=== PATIENT | male | born 1965 | race Caucasian/White ===

== ENCOUNTER 2016-08-25 10:36 | Day surgery (SDC) | payer OTHER ==
[2016-08-25] VITALS (15 sets, daily range): BP systolic 93–111; BP diastolic 58–80; PULSE 76–96; RESP 10–20; Ht 170.2 cm; Wt 81.8 kg
[~2016-08-25] VITALS: Ht 170.2 cm; Wt 81.8 kg
[~2016-08-25 10:36] MED LIST: CEFAZOLIN 2 GM/50 ML (PMX) 50 ML IVPB ONE
--- NOTE | 2016-08-25 11:27 | RADRPT ---
PROCEDURE: XR Chest AP portable CLINICAL INDICATION: Preop TECHNIQUE: An AP portable radiograph of the chest was submitted. COMPARISON: None. FINDINGS: Support Hardware: None Cardiovascular: The cardiovascular silhouette appears unremarkable. Lung Kumar: The lung kumar appear clear with no nodule, alveolar infiltrate, for a interstitial pr ominence evident. Pleural Spaces: No pneumothorax or pleural effusion is identified. Osseous Structures: The osseous structures appear intact. Soft Tissues: The soft tissues appear unremarkable. IMPRESSION: Unremarkable portable chest. Physician Annette Date Time Electronically viewed and signed by Liam Auguste Physician on 08/25/2016 11:27 /
[2016-08-25] MEDS ORDERED: FENTAnyl 50 MCG/ML VIAL ONE (12:26)
[2016-08-25] MEDS ORDERED: PROPOFOL 20 ML ONE ×2 (12:26→13:16)
[2016-08-25] MEDS ORDERED: ROPIVACAINE 0.5 % 30 ML VIAL ONE (12:26)
[2016-08-25] MEDS ORDERED: MIDAZOLAM 1 MG/ML 2 ML INJ ONE (12:26)
[2016-08-25] MEDS ORDERED: LACTATED RINGER'S 1,000 ML IV* SCH (12:30)
[2016-08-25] MEDS ORDERED: BUPIVACAINE 0.25% (MPF) 30 ML INJ ONE (13:11)
[2016-08-25] MEDS ORDERED: DEXAMETHASONE 4 MG/ML 1 ML INJ ONE (13:16)
[2016-08-25] MEDS ORDERED: KETOROLAC 30 MG INJ ONE (13:16)
[2016-08-25] MEDS ORDERED: CEFAZOLIN 1 GM INJ ONE (13:16)
[2016-08-25] MEDS ORDERED: ONDANSETRON 4 MG INJ ONE (13:16)
[2016-08-25] MEDS ORDERED: METOCLOPRAMIDE 10 MG INJ ONE (13:16)
[2016-08-25] MEDS ORDERED: BUPIVACAINE 0.5% (SDV) 30 ML INJ ONE (13:28)
[2016-08-25] MEDS ORDERED: DIPHENHYDRAMINE 50 MG INJ IV PRN (13:30)
[2016-08-25] MEDS ORDERED: MEPERIDINE 25 MG INJ IV PRN (13:30)
[2016-08-25] MEDS ORDERED: HYDROmorphONE (0.2 MG/ML) 10ML SYG IV PRN ×3 (13:30)
[2016-08-25] MEDS ORDERED: ONDANSETRON 4 MG INJ IV PRN (13:30)
[2016-08-25] MEDS ORDERED: FENTAnyl 50 MCG/ML VIAL IV PRN ×3 (13:30)
[2016-08-25] MEDS ORDERED: morphine (1 MG/ML) 10ML SYRINGE IV PRN ×3 (13:30)
[2016-08-25] MEDS ORDERED: ACETAMINOPHEN 1000MG/100ML IV 100 ML ONE (13:50)
--- NOTE | 2016-08-25 16:20 | RADRPT ---
PROCEDURE: Intraoperative imaging of the right fifth finger with fluoroscopy. CLINICAL INDICATION: Right fifth finger pain. Fracture. Intraoperative. TECHNIQUE: 28 images of the right fifth finger were obtained in the operating room with an image i ntensifier. No radiologist was in attendance. 49 seconds of fluoroscopy time was used. COMPARISON: No prior study is available for comparison. FINDINGS: Images demonstrate open reduction and internal fixation of the comminuted intra-articular fracture o f the base of the fifth proximal phalanx. IMPRESSION: 1. Intraoperative imaging of the right fifth finger. RPTAT: QQ .Mono Rodriguez MD, Date Time Electronically viewed and signed by .Mono Rodrigeuz MD, on 08/25/2016 16:20 .R/
--- NOTE | 2016-08-25 17:48 | OPR ---
DATE OF OPERATION: 08/25/2016 PREOPERATIVE DIAGNOSIS: Right small finger proximal phalanx fracture, intra-articular at the metaca rpophalangeal joint. POSTOPERATIVE DIAGNOSIS: Right small finger proximal phalanx fracture, intra-articular at the metac arpophalangeal joint. OPERATION PERFORMED: Open reduction internal fixation of intra-articular right small finger proxima l phalanx fracture at the metacarpophalangeal joint. SURGEON: SALONI ZARATE MD. ANESTHESIA: Peripheral nerve block with MAC. OPERATIVE FINDINGS: Early callus formation and a displaced fracture of the proximal phalanx with th e distal fragment in 40 degrees of extension. Intra-articular extension of the fracture fragments. INDICATIONS FOR PROCEDURE: This is a 51-year-old male who injured his right small finger. He was s een in clinic 2 weeks after the injury and we discussed the options. He elected to proceed with ope rative intervention understanding the risks and benefits. We placed a stat authorization and were a ble to get him into surgery one week later. DESCRIPTION OF PROCEDURE: Patient was seen in the preoperative area and again gave him informed con sent, understands the risks and benefits. DESCRIPTION OF THE PROCEDURE: Patient was seen in the preoperative area and all further questions w ere answered. He elected to proceed with surgery understanding the risks, benefits. He was taken t o the operative suite and placed in supine position. The anesthesia team performed a peripheral ner ve block at my request for anesthesia as well as postoperative pain relief. Sedation was administer ed. A tourniquet placed in the right upper extremity. Two grams of Ancef was administered and righ t upper extremity was prepped with ChloraPrep stick and draped in the usual sterile fashion. Esmarc h bandage was used to exsanguinate the extremity and tourniquet inflated to 250 mmHg. A closed red uction was attempted, but there was too much callus formation at this time and closed reduction was not possible. A decision was made to do an open reduction and a mid axial incision was made over th e base of the proximal phalanx with sharp dissection carried down through skin and subcutaneous tiss ue on the ulnar aspect of the digit. A scissor dissection identified the extensor apparatus and inc ision was made on the ulnar aspect of the extensor apparatus. A fracture site was identified and a callus was cleaned out gently with a Pickering elevator and a small rongeur. The fracture was already i n the early stages of healing and reduction was difficult. However, I was able to get the fracture in a more anatomic position. A 0.045 K-wire was driven from the ulnar aspect of the digit, antegrad e through the fracture site and secured into the distal fragment. An additional 0.045 K-wire was us ed on the radial aspect of the digit and the fracture fragment was found to be secure. The wound wa s copiously irrigated and pins were cut and pin caps placed. X-ray imaging confirmed interval reduc tion and appropriate replacement. Skin was closed with interrupted 4-[address] nylon [address] was place d followed by sterile gauze, Webril, and a short arm ulnar gutter splint. Tourniquet was deflated a fter 38 minutes and patient was awakened from anesthesia. He was taken to the postoperative suite i n stable condition and tolerated the procedure well without complication. SPECIMENS: None. ESTIMATED BLOOD LOSS: 5 mL. Sponge, instrument and needle counts correct. Tourniquet time: 38 minutes. Fluoroscopic images 28. Dictated By: SALONI RODRIGUEZ/KEV Conf#: [id number] DID#: [id number]
== END 2016-08-25 15:55 | disposition home or self-care (01) ==
LOC: SDS 10:36
PROVIDERS: ATTEND Orthopaedic Surgery Hand Surgery
DX: S62.616D Displaced fracture of proximal phalanx of right little finger, subsequent encounter for fracture with routine healing (principal); X58.XXXD Exposure to other specified factors, subsequent encounter
CPT/HCPCS: 26746; 71010; 73140; C1713; J0131; J0690; J1100; J1885; J2250; J2405; J2765; J2795; J3010; Z7512; Z7610

== ENCOUNTER 2018-01-11 08:25 | Inpatient (IN) | END 2018-01-16 19:24 | disposition home or self-care (01) | DRG 552 ==

== ENCOUNTER 2018-01-30 12:13 | Emergency (ER) | END 2018-01-30 13:08 | disposition home or self-care (01) ==

== ENCOUNTER 2018-11-24 23:53 | Emergency (ER) | payer OTHER ==
[~2018-11-24] VITALS: Ht 170.2 cm; Wt 87.6 kg
[~2018-11-24 23:53] MED LIST changes: +ACET325T40 PO; +BACL10TA PO; -CEFAZOLIN 2 GM/50 ML (PMX) 50 ML IVPB ONE; +GABA300C PO; +GABA300C16 PO; +HYDR-3605 PO; +NAPR-985 PO; +NAPR500T8 PO; +TRAM50TA2 PO
[2018-11-25 00:15] VITALS: Ht 170.2 cm; Wt 87.6 kg
[2018-11-25] MEDS: morphine 4 MG/ML VIAL IV STA ×2 (03:57→04:07)
[2018-11-25] MEDS: ONDANSETRON 4 MG INJ IV STA ×2 (03:57→04:07)
[2018-11-25] MEDS ORDERED: morphine 4 MG/ML VIAL IM ONE (04:00)
[2018-11-25] MEDS ORDERED: ONDANSETRON 4 MG INJ IM ONE (04:00)
[2018-11-25] MEDS ORDERED: morphine 4 MG/ML VIAL IM STA (06:07)
[2018-11-25] MEDS ORDERED: ONDANSETRON 4 MG INJ IM STA (06:07)
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
[2018-11-25] MEDS ORDERED: IBUP-1542 PO (06:45)
[2018-11-25] MEDS ORDERED: NALO4SPR NS (06:45)
[2018-11-25] MEDS ORDERED: OXYC5CAP17 PO (06:45)
[2018-11-25] MEDS ORDERED: BACITRACIN 0.9 GM OINT TOP ONE (07:00)
[2018-11-25] MEDS ORDERED: DIPHTH/TET/ACEL PERTUSS (ADULT) 0.5 ML VIAL IM* ONE (07:00)
[2018-11-25 07:36] VITALS: BP 129/90; PULSE 91; RESP 20
== END 2018-11-25 07:58 | disposition home or self-care (01) ==
LOC: E/R 23:53
DX: S80.812A Abrasion, left lower leg, initial encounter (principal); R40.2142 Coma scale, eyes open, spontaneous, at arrival to emergency department; R40.2252 Coma scale, best verbal response, oriented, at arrival to emergency department; R40.2362 Coma scale, best motor response, obeys commands, at arrival to emergency department; F17.210 Nicotine dependence, cigarettes, uncomplicated; V03.10XA Pedestrian on foot injured in collision with car, pick-up truck or van in traffic accident, initial encounter
CPT/HCPCS: 73562; 73590; 90471; 90715; 96372; J2270; J2405; Z7502; Z7610

== ENCOUNTER 2018-12-15 00:58 | Emergency (ER) | payer OTHER ==
[~2018-12-15] VITALS: Ht 175.3 cm; Wt 87.1 kg
[~2018-12-15 00:58] MED LIST changes: +IBUP-1542 PO; +NALO4SPR NS; +OXYC5CAP17 PO
[2018-12-15 01:08] VITALS: Ht 175.3 cm; Wt 87.1 kg
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
[2018-12-15] MEDS ORDERED: CEPH-443 PO (03:52)
[2018-12-15] MEDS ORDERED: OXYCODONE/ACETAMINOPHEN (5/325) TAB PO ONE (04:00)
[2018-12-15 04:28] VITALS: BP 143/86; PULSE 84; RESP 16
== END 2018-12-15 04:29 | disposition home or self-care (01) ==
LOC: E/R 00:58
DX: L03.116 Cellulitis of left lower limb (principal); F17.210 Nicotine dependence, cigarettes, uncomplicated
CPT/HCPCS: Z7502; Z7610; 99283

== ENCOUNTER 2019-01-17 13:04 | Emergency (ER) | payer OTHER ==
[~2019-01-17] VITALS: Ht 170.2 cm; Wt 84.4 kg
[~2019-01-17 13:04] MED LIST changes: +CEPH-443 PO
[2019-01-17 13:15] VITALS: BP 133/67; PULSE 112; RESP 18; Ht 170.2 cm; Wt 84.4 kg
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
[2019-01-17] MEDS ORDERED: IBUPROFEN 800 MG TAB PO ONE (17:00)
[2019-01-17] MEDS ORDERED: IBUP800T48 PO (17:34)
[2019-01-17] MEDS ORDERED: BACI28.34 TOP (17:34)
== END 2019-01-17 17:55 | disposition home or self-care (01) ==
LOC: FTE 13:04
DX: S00.03XA Contusion of scalp, initial encounter (principal); J45.909 Unspecified asthma, uncomplicated; F17.210 Nicotine dependence, cigarettes, uncomplicated; V18.4XXA Pedal cycle driver injured in noncollision transport accident in traffic accident, initial encounter
CPT/HCPCS: 99283

== ENCOUNTER 2019-01-28 22:17 | Emergency (ER) | payer OTHER ==
[~2019-01-28] VITALS: Ht 167.6 cm; Wt 85.1 kg
[~2019-01-28 22:17] MED LIST changes: +BACI28.34 TOP; +IBUP800T48 PO
[2019-01-28 22:24] VITALS: Ht 167.6 cm; Wt 85.1 kg
[2019-01-29] MEDS ORDERED: HYDROCODONE/APAP (5/325) TAB PO ONE (03:00)
[2019-01-29] MEDS ORDERED: IBUP-1542 PO (05:58)
[2019-01-29] MEDS ORDERED: HYDR-4011 PO (05:58)
--- NOTE | 2019-01-29 06:01 | ERD ---
ER Documentation Chief Complaint Chief Complaint pain/swelling left lower leg x 1 day. denies trauma ROS All systems reviewed and are negative except as per history of present illness. Medications Home Meds Active Scripts Ibuprofen* (Motrin*) 600 Mg Tab, 600 MG PO Q6H PRN for PAIN AND OR ELEVATED TEMP, #30 TAB Prov:ANTIONETTE QUIÑONES 01/29/19 Hydrocodone/Acetaminophen ([place] 5-325 Tablet) 1 Each Tablet, 1 EACH PO Q6H PRN for PAIN, #10 TAB Prov:ANTIONETTE QUIÑONES DO 01/29/19 Bacitracin* (Bacitracin Zinc Oint*) 28.35 Gm Oint, 1 APPLIC TOP BID for 14 Days, #1 TUB APPLI TO Prov:LYDIA UMANZOR PA-C 01/17/19 Ibuprofen* (Motrin*) 800 Mg Tab, 800 MG PO Q6H PRN for PAIN AND OR ELEVATED TEMP, #30 TAB Prov:LYDIA UMANZOR PA-C 01/17/19 Cephalexin* (Keflex*) 500 Mg Capsule, 500 MG PO QID for 5 Days, CAP Prov:SASHA GOMEZ MD 12/15/18 Oxycodone Hcl* (IR) (Oxycodone Hcl*) 5 Mg Capsule, 5 MG PO Q6 PRN for PAIN LEVEL 6-10, #9 TAB Prov:SASHA GOMEZ MD 11/25/18 Naloxone HCl nasal spray (Narcan 4 mg/0.1 mL nasal) 4 Mg [place], 4 MG NS .Q2-3MIN for OPIOID OVERDOSE, #2 SPRAY 0 Refills [place] 0.1 mL into one nostril. Repeat with second device into other nostril after 2-3 minutes if no or minimal response Prov:SASHA GOMEZ MD 11/25/18 Ibuprofen* (Motrin*) 600 Mg Tab, 600 MG PO Q6H PRN for PAIN AND/OR INFLAMMATION, #30 TAB Prov:SASHA GOMEZ MD 11/25/18 Gabapentin* (Neurontin*) 300 Mg Capsule, 300 MG PO BID, #37 CAP Prov:EDSON BRIGHT DO 01/30/18 Baclofen* (Baclofen*) 10 Mg Tablet, 10 MG PO TID, #20 TAB Prov:EDSON BRIGHT DO 01/30/18 Tramadol HCl (Tramadol HCl) 50 Mg Tablet, 50 MG PO Q6 PRN for PAIN, #10 TAB Prov:EDSON BRIGHT DO 01/30/18 Naproxen* (Naprosyn*) 500 Mg Tablet, 500 MG PO BID PRN for PAIN AND/OR INFLAMMATION, #30 TAB Prov:EDSON BRIGHT DO 01/30/18 Naproxen* (Naproxen EC*) 500 Mg Tablet.dr, 500 MG PO BID PRN for PAIN for 7 Days, #14 TAB be sure to take with food or milk (not on an empty stomach) Prov:JITENDRA ARANA MD 01/16/18 Hydrocodone/Acetaminophen (Hydrocodon-Acetaminoph 7.5-325) 1 Each Tablet, 2 TAB PO Q8H PRN for PAIN LEVEL 8-10 for 7 Days, #10 TAB Prov:JITENDRA ARANA MD 01/16/18 Gabapentin* (Gabapentin*) 300 Mg Capsule, 300 MG PO BID for 7 Days, #14 CAP Prov:JITENDRA ARANA MD 01/16/18 Acetaminophen (MAPAP) 325 Mg Tablet, 650 MG PO Q6H PRN for PAIN LEVEL 1-3 OR FEVER for 7 Days, #28 TAB Prov:JITENDRA ARANA MD 01/16/18 Baclofen* (Baclofen*) 10 Mg Tablet, 10 MG PO TID PRN for neck pain for 7 Days, #21 TAB Prov:JITENDRA ARANA MD 01/16/18 Allergies Allergies: Coded Allergies: Penicillins (Verified Allergy, Severe, Swollen Throat, 11/25/18) PMhx/Soc History of Surgery: Yes (R Hand Surgery, R LEG) Anesthesia Reaction: No Hx Neurological Disorder: No Hx Respiratory Disorders: No Hx Cardiac Disorders: No Hx Psychiatric Problems: No Hx Miscellaneous Medical Probl: Yes (Restless Legs Syndrome) Hx Alcohol Use: No (Social) Hx Substance Use: No (Marijuana) Hx Tobacco Use: Yes (Cigarettes, Vaping) Smoking Status: Current every day smoker Physical Exam Vitals Vital Signs Date Temp Pulse Resp B/P (MAP) Pulse Ox O2 O2 Flow FiO2 Time Delivery Rate 01/28/19 98.7 110 20 131/76 97 22:24 (94) Physical Exam Const: No acute distress Head: Atraumatic Eyes: Normal Conjunctiva ENT: Normal External Ears, Nose and Mouth. Neck: Full range of motion. No meningismus. Resp: Clear to auscultation bilaterally Cardio: Regular rate and rhythm, no murmurs Abd: Soft, non tender, non distended. Normal bowel sounds Skin: No petechiae or rashes Back: No midline or flank tenderness Ext: No cyanosis, or edema Neur: Awake and alert Psych: Normal Mood and Affect Results 24 hrs Current Medications Medications Dose Sig/Maximiliano Start Time Status Last (Trade) Ordered Route PRN Stop Time Admin Dose Reason Admin 1 tab ONCE ONCE 01/29/19 DC 01/29/19 Acetaminophen PO 03:00 03:02 / 01/29/19 03:01 Hydrocodone Bitart ([place] (5/274)) Departure Diagnosis: Primary Impression: Pain of left leg Condition: Fair Patient Instructions: Possible Causes of Low Back or Leg Pain Referrals: [facility] (PCP) Additional Instructions: Call your primary care doctor TOMORROW for an appointment during the next 1-2 days.See the doctor sooner or return here if your condition worsens before your appointment time. ANTIONETTE QUIÑNOES DO Jan 29, 2019 06:01
[2019-01-29 06:21] VITALS: BP 125/78; PULSE 97; RESP 18
== END 2019-01-29 06:22 | disposition home or self-care (01) ==
LOC: FTE 22:17
DX: M79.605 Pain in left leg (principal); F17.210 Nicotine dependence, cigarettes, uncomplicated
CPT/HCPCS: 73700; Z7502; Z7610

== ENCOUNTER 2019-04-17 16:22 | Emergency (ER) | payer OTHER ==
[~2019-04-17] VITALS: Ht 162.6 cm; Wt 82.9 kg
[~2019-04-17 16:22] MED LIST changes: +CYCL10TA7 PO; +HYDR-4011 PO; +LACT1CAP57 PO; +SULF1TAB31 PO
[2019-04-17 16:32] VITALS: Ht 162.6 cm; Wt 82.9 kg
[2019-04-17] MEDS ORDERED: TRIMETHOPRIM/SULFAMETHOX (DS) TAB PO ONE (18:00)
[2019-04-17] MEDS ORDERED: LIDOCAINE 1% (MDV) 20 ML INJ SC ONE (18:00)
[2019-04-17 19:12] VITALS: BP 139/87; PULSE 93; RESP 18
== END 2019-04-17 19:13 | disposition home or self-care (01) ==
LOC: FTE 16:22
DX: L02.01 Cutaneous abscess of face (principal); M62.838 Other muscle spasm; F17.210 Nicotine dependence, cigarettes, uncomplicated
CPT/HCPCS: 10061; Z7610